=== PATIENT | male | born 1945 | race Caucasian/White ===

== ENCOUNTER 2017-11-27 04:30 | Outpatient (CLI) | payer SELFPAY ==
[~2017-11-27 04:30] MED LIST: APIX5TAB3 PO; ASCO10007 PO; CHOL100044 PO; CYCL-1 PO; DOXY150T PO; MULT-1085 PO
== END 2017-11-27 23:59 | disposition home or self-care (01) ==
LOC: HW VAS 04:30
DX: Z00.00 Encounter for general adult medical examination without abnormal findings (principal)